=== PATIENT | female | born 1955 | race Two or more races ===

== ENCOUNTER → 2017-07-01 | Outpatient (REF) | payer BC | LOC: M SFHCLERA 17:16 | DX: J02.9 Acute pharyngitis, unspecified (principal) ==

== ENCOUNTER → 2018-06-07 | Outpatient (REF) | payer BC | LOC: M SFHCLERA 17:58 | PROVIDERS: ATTEND Nurse Practitioner Family | DX: R53.81 Other malaise (principal) ==

== ENCOUNTER → 2022-07-28 | Outpatient (REF) | payer BC ==
[2022-07-28 14:05] LABS: PERCENT SATURATION 16.1 % (13.2-45.0)
== END ==
LOC: M LAB REF 12:18
PROVIDERS: ATTEND Internal Medicine
DX: D64.9 Anemia, unspecified (principal)

== ENCOUNTER → 2022-08-04 | Outpatient (REF) | payer BC | LOC: M LAB REF 12:26 | PROVIDERS: ATTEND Internal Medicine | DX: D44.12 Neoplasm of uncertain behavior of left adrenal gland (principal) ==

== ENCOUNTER → 2022-08-11 | Outpatient (CLI) | payer BC, MEDICARE | LOC: M PLAIMG 10:48 | PROVIDERS: ATTEND Internal Medicine | DX: D44.12 Neoplasm of uncertain behavior of left adrenal gland (principal) ==

== ENCOUNTER → 2022-08-25 | Outpatient (REF) | payer BC | LOC: M LAB REF 11:32 | PROVIDERS: ATTEND Internal Medicine | DX: D44.12 Neoplasm of uncertain behavior of left adrenal gland (principal) ==